=== PATIENT | female | born 1950 | race African-American/Black ===

== ENCOUNTER 2019-05-24 13:19 | Inpatient (IN) | payer OTHER ==
[2019-05-24 14:21] VITALS: BMI 27.3
--- NOTE | 2019-05-24 16:42 | HP ---
CIWA Score - Admission Criteria [facility] Guidelines: Admission for Medically Managed Detox: Requires at least one of the followin. CIWA greater than 12 2. Seizures within the past 24 hours 3. Delirium tremens within the past 24 hours 4. Hallucinations within the past 24 hours 5. Acute intervention needed for co occurring medical disorder 6. Acute intervention needed for co occurring psychiatric disorder 7. Severe withdrawal that cannot be handled at a lower level of care (continued vomiting, continued diarrhea, abnormal vital signs) requiring intravenous medication and/or fluids 8. Admitting History and Physical - Admission Chief Complaint: "i'm here for rehab" History of Present Illness: A 69year old female with h/o htn, HIV+ on haart, and heroin use disorder, on suboxone 8mg-2mg SLtab daily (prescription filled 05/24/2019). Pt presents here for rehab after been referred from [facility]. Pt states, she last used heroin 2bags on 05/23/19 and states that, in [facility] she was given suboxone 8mg-2mg film once. History Source: Patient Limitations to Obtaining History: No Limitations - Past Medical History Infectious Disease: Yes: HIV (H/o HIV+ 30years+.) Musculoskeletal: Yes: Chronic low back pain - Smoking History Smoking history: Current every day smoker Have you smoked in the past 12 months: Yes Aproximately how many cigarettes per day: 7 - Alcohol/Substance Use Hx Alcohol Use: No History of Substance Use: reports: Heroin Date of Last Use: 05/23/19 - Social History Usual Living Arrangement: Yes: Other (Lives with family) Do you think of yourself as: Straight/Heterosexual ADL: Independent History of Recent Travel: No Admission [facility] Allergies/Adverse Reactions: Allergies Allergy/AdvReac Type Severity Reaction Status Date / Time Penicillins Allergy Rash Verified 05/24/19 13:54 Exam Limitations: No Limitations - Ebola screening Have you traveled outside of the country in the last 21 days: No Have you had contact with anyone from an Ebola affected area: No Have you been sick,other than usual withdrawal symptoms: No Do you have a fever: No - Review of Systems Constitutional: No Symptoms Reported EENT: reports: No Symptoms Reported Respiratory: reports: No Symptoms reported Cardiac: reports: No Symptoms Reported GI: reports: No Symptoms Reported : reports: No Symptoms Reported Musculoskeletal: reports: Back Pain, Other (Uses cane) Integumentary: reports: No Symptoms Reported Neuro: reports: No Symptoms reported Endocrine: reports: No Symptoms Reported Hematology: reports: No Symptoms Reported Psychiatric: reports: Judgement Intact, Mood/Affect Appropiate, Orientated x3 Other Systems: Reviewed and Negative Patient History - PPD History Previous Implant?: Yes (pt states, she had one long time ago.) Documented Results: Negative w/o proof Implanted On Prior R Admission?: No PPD to be Administered?: Yes - Reproductive History Patient is a Female of Child Bearing Age (11 -55 yrs old): No - Smoking Cessation Smoking history: Current every day smoker Have you smoked in the past 12 months: Yes Aproximately how many cigarettes per day: 7 Hx Chewing Tobacco Use: No Initiated information on smoking cessation: Yes 'Breaking Loose' booklet given: 05/24/19 - Substance & Tx. History Hx Substance Use: Yes Substance Use Type: Heroin Hx Substance Use Treatment: No - Substances abused Heroin Substance route: Inhalation Frequency: Daily Amount used: 1-2 bags Age of first use: 19 Date of last use: 05/23/19 Admission Physical Exam S - Vital Signs Vital Signs: Vital Signs - 24 hr 05/24/19 13:46 Temperature 98.0 F Pulse Rate 88 Respiratory 20 Rate Blood Pressure 151/86 - Physical General Appearance: Yes: No Apparent Distress HEENTM: Yes: EOMI, Hearing grossly Normal, Normal Voice, DEEP, Pharynx Normal, Tm's normal Respiratory: Yes: Chest Non-Tender, Lungs Clear, Normal Breath Sounds, No Respiratory Distress, No Accessory Muscle Use Neck: Yes: No masses,lesions,Nodules, Supple, Trachea in good position Breast: Yes: Breast Exam Deferred Cardiology: Yes: Regular Rhythm, Regular Rate, S1, S2 Abdominal: Yes: Normal Bowel Sounds, Non Tender, Soft Genitourinary: Yes: Within Normal Limits Back: Yes: Normal Inspection Musculoskeletal: Yes: full range of Motion, Other (Ambulates with a cane) Extremities: Yes: Normal Capillary Refill, Normal Inspection, Non-Tender Neurological: Yes: Fully Oriented, Alert, Normal Mood/Affect, Normal Response Integumentary: Yes: Dry, Warm Lymphatic: Yes: Within Normal Limits Cleared for Admission [facility] - Detox or Rehab Claeared for Rehab Admission: Yes Breathalyzer - Breathalyzer Breathalyzer: 0 Urine Drug Screen - Test Device Lot number: [id number] Expiration date: 12/13/20 - Control Is test valid?: Yes - Results Drug screen NEGATIVE: No Urine drug screen results: MOP-Opiates, BUP-Suboxone Inpatient Rehab Admission - Rehab Decision to Admit Inpatient rehab admission?: Yes - Initial Determination Are CD services needed?: Yes Free of communicable disease: Yes Not in need of hospitalization: Yes - Rehab Admission Criteria Previous failed treatment: Yes Poor recovery environment: Yes Comorbidities: Yes Lacks judgement: Yes Patient is meeting Inpatient Rehab admission criteria:: Yes
[2019-05-24] MEDS ORDERED: LOPERAMIDE HCL 2 MG CAPSULE PO PRN (17:07)
[2019-05-24] MEDS ORDERED: MAG HYDROX/AL HYDROX/SIMETH 30 ML UNIT-DOSE CUP PO PRN (17:07)
[2019-05-24] MEDS ORDERED: guaiFENesin 200 MG/10 ML 10 ML UNIT-DOSE CUPS PO PRN (17:07)
[2019-05-24] MEDS ORDERED: MAGNESIUM HYDROX 2400MG/30ML ORAL SUSPENSION 30 ML CUP PO PRN (17:07)
[2019-05-24] MEDS ORDERED: hydrOXYzine PAMOATE 25 MG CAPSULE (FP) PO PRN (17:07)
[2019-05-24] MEDS ORDERED: IBUPROFEN 400 MG TABLET (FP) PO PRN (17:07)
[2019-05-24] MEDS ORDERED: P-EPHED 60MG/TRIPROLIDI 2.5MG TABLET PO PRN (17:07)
[2019-05-24] MEDS ORDERED: MENTHOL/PHENOL 1 EACH UD MM PRN (17:07)
[2019-05-24] MEDS ORDERED: MAGNESIUM CITRATE 300 ML BOTTLE PO PRN (17:07)
[2019-05-24] MEDS ORDERED: TUBERCULIN PPD 5 TU/0.1ML VIAL ID ONE (19:09)
[2019-05-24] MEDS: THIAMINE HCL 100 MG TABLET (FP) PO SCH (21:28)
[2019-05-24] MEDS: RILPIVIRINE HCL 25 MG TABLET PO SCH (21:29)
[2019-05-24] MEDS: DOLUTEGRAVIR SODIUM 50 MG TABLET (NON-FORMULARY) PO SCH (21:30)
[2019-05-24] MEDS: ATORVASTATIN CA 20 MG TABLET (FP) PO SCH (21:31)
[2019-05-24] MEDS: GABAPENTIN 300 MG CAPSULE PO SCH (21:31)
[2019-05-24] MEDS: MELATONIN 5 MG TABLETS PO PRN (21:34)
[2019-05-24] MEDS ORDERED: PATIENT'S OWN MEDICATION (NON-FORMULARY) (Dolutegravir/Rilpivirine [Juluca 50-25 Mg Tablet PO SCH (22:00)
[2019-05-25] MEDS: ASPIRIN COATED 81 MG TABLET.EC PO SCH (09:42)
[2019-05-25] MEDS: HYDROCHLOROTHIAZIDE 25 MG TABLET (FP) PO SCH (09:42)
[2019-05-25] MEDS: BUPRENORPHINE/NALOXONE 8 MG/2 MG FILM PACKET SL SCH (09:43)
[2019-05-25] MEDS: PRENATAL VITAMINS W/ FOLIC ACID TABLET (FP) PO SCH (09:43)
[2019-05-25] MEDS: amLODIPine BESYLATE 5 MG TABLET (FP) PO SCH (09:43)
[2019-05-25] MEDS: GABAPENTIN 300 MG CAPSULE PO SCH ×2 (09:43→21:33)
--- NOTE | 2019-05-25 10:12 | PN ---
[facility] Progress Note Note: Patient is new to [facility] and admitted 05/24/2019 for rehab for Opiod dependence. Patient is on Suboxone MAT program at [facility] [place] with PCP Dr. Denise Burdick (confirmed with [facility]). Patient has PMH of HTN, HIV+ and peripheral neuropathy. She denies mental illness and SI/HI. Vital Signs Temperature 98.0 F 05/25/19 07:04 Pulse Rate 66 05/25/19 07:04 Respiratory Rate 18 05/25/19 07:04 Blood Pressure 135/74 05/25/19 07:04 O2 Sat by Pulse Oximetry (%) ROS: denies shakes, chills, sweating, chest pain, sob and headache. PE: alert and oriented x 3 skin warm and dry +perrla, eoms intact bl ext full rom, amb with cane no tremors A/P: Opiod dependence HTN HIV+ Peripheral neuropathies suboxone mat suboxone mat in progress continue medications and rehab services encourage oral fluids monitor clinically
--- NOTE | 2019-05-25 11:40 | EKG ---
Test Reason : Blood Pressure : / mmHG Vent. Rate : 062 BPM Atrial Rate : 062 BPM P-R Int : 176 ms QRS Dur : 084 ms QT Int : 442 ms P-R-T Axes : 065 016 -07 degrees QTc Int : 448 ms NORMAL SINUS RHYTHM POSSIBLE LEFT ATRIAL ENLARGEMENT NONSPECIFIC INTRAVENTRICULAR CONDUCTION DEFECT NO PREVIOUS ECGS AVAILABLE Confirmed by MARIANNA BARROSO MD ([id number]) on 05/25/2019 11:40:00 AM Referred By: Confirmed By:MARIANNA BARROSO MD
[2019-05-25 11:45] LABS: HEMOGLOBIN 13.4 GM/dL (10.7-15.3); MCH 28.2 pg (25.7-33.7); MEAN CELL VOLUME 88.1 fl (80-96); MEAN PLT VOLUME 9.8 fl (7.5-11.1); PLATELET COUNT 261 K/MM3 (134-434); RBC 4.76 M/mm3 (3.60-5.2); RDW 13.7 % (11.6-15.6); WHITE BLOOD COUNT 4.9 K/mm3 (4.0-10.0)
[2019-05-25 11:53] LABS: ALBUMIN 3.5 g/dl (3.4-5.0); BILIRUBIN,TOTAL 0.5 mg/dL (0.2-1); BLOOD UREA NITROGEN 16.1 mg/dL (7-18); CALCIUM 9.3 mg/dL (8.5-10.1); CREATININE 1.1 mg/dL (0.55-1.3); POTASSIUM 4.1 mmol/L (3.5-5.1); TOT PROT 7.5 g/dl (6.4-8.2)
[2019-05-25] MEDS: NICOTINE POLACRILEX 2 MG GUM BUC PRN (13:23)
[2019-05-25] MEDS ORDERED: COLLOIDAL OATMEAL 1 BAR EACH TP PRN (13:35)
[2019-05-25 15:51] LABS: URINE APPEARANCE CLEAR; URINE BILIRUBIN NEGATIVE (NEGATIVE); URINE COLOR YELLOW; URINE GLUCOSE (UA) NEGATIVE (NEGATIVE); URINE KETONE NEGATIVE (NEGATIVE); URINE LEUK ESTERASE NEGATIVE (NEGATIVE); URINE NITRITE NEGATIVE (NEGATIVE); URINE PROTEIN TRACE (NEGATIVE); URINE UROBILINOGEN 0.2 mg/dL (0.2-1.0)
[2019-05-25] MEDS: ATORVASTATIN CA 20 MG TABLET (FP) PO SCH (21:33)
[2019-05-25] MEDS: THIAMINE HCL 100 MG TABLET (FP) PO SCH (21:33)
[2019-05-25] MEDS: RILPIVIRINE HCL 25 MG TABLET PO SCH (21:34)
[2019-05-25] MEDS: MELATONIN 5 MG TABLETS PO PRN (21:34)
[2019-05-25] MEDS: DOLUTEGRAVIR SODIUM 50 MG TABLET (NON-FORMULARY) PO SCH (21:35)
[2019-05-26] MEDS: ASPIRIN COATED 81 MG TABLET.EC PO SCH (10:18)
[2019-05-26] MEDS: amLODIPine BESYLATE 5 MG TABLET (FP) PO SCH (10:18)
[2019-05-26] MEDS: HYDROCHLOROTHIAZIDE 25 MG TABLET (FP) PO SCH (10:18)
[2019-05-26] MEDS: PRENATAL VITAMINS W/ FOLIC ACID TABLET (FP) PO SCH (10:18)
[2019-05-26] MEDS: GABAPENTIN 300 MG CAPSULE PO SCH ×2 (10:18→21:13)
[2019-05-26] MEDS: BUPRENORPHINE/NALOXONE 8 MG/2 MG FILM PACKET SL SCH (10:19)
[2019-05-26] MEDS: ATORVASTATIN CA 20 MG TABLET (FP) PO SCH (21:13)
[2019-05-26] MEDS: DOLUTEGRAVIR SODIUM 50 MG TABLET (NON-FORMULARY) PO SCH (21:13)
[2019-05-26] MEDS: RILPIVIRINE HCL 25 MG TABLET PO SCH (21:13)
[2019-05-26] MEDS: MELATONIN 5 MG TABLETS PO PRN (21:13)
[2019-05-26] MEDS: THIAMINE HCL 100 MG TABLET (FP) PO SCH (21:13)
[2019-05-27] MEDS: ASPIRIN COATED 81 MG TABLET.EC PO SCH (09:02)
[2019-05-27] MEDS: BUPRENORPHINE/NALOXONE 8 MG/2 MG FILM PACKET SL SCH (09:03)
[2019-05-27] MEDS: HYDROCHLOROTHIAZIDE 25 MG TABLET (FP) PO SCH (09:03)
[2019-05-27] MEDS: GABAPENTIN 300 MG CAPSULE PO SCH ×2 (09:03→21:13)
[2019-05-27] MEDS: PRENATAL VITAMINS W/ FOLIC ACID TABLET (FP) PO SCH (09:03)
[2019-05-27] MEDS: amLODIPine BESYLATE 5 MG TABLET (FP) PO SCH (09:03)
[2019-05-27] MEDS ORDERED: PT OWN MED DRAWER 7, Y5N ONE ×2 (19:58→21:16)
[2019-05-27] MEDS: ATORVASTATIN CA 20 MG TABLET (FP) PO SCH (21:13)
[2019-05-27] MEDS: THIAMINE HCL 100 MG TABLET (FP) PO SCH (21:13)
[2019-05-27] MEDS: RILPIVIRINE HCL 25 MG TABLET PO SCH (21:14)
[2019-05-27] MEDS: DOLUTEGRAVIR SODIUM 50 MG TABLET (NON-FORMULARY) PO SCH (21:14)
[2019-05-27] MEDS: MELATONIN 5 MG TABLETS PO PRN (21:15)
[2019-05-28] MEDS: GABAPENTIN 300 MG CAPSULE PO SCH ×2 (09:52→21:07)
[2019-05-28] MEDS: PRENATAL VITAMINS W/ FOLIC ACID TABLET (FP) PO SCH (09:52)
[2019-05-28] MEDS: ASPIRIN COATED 81 MG TABLET.EC PO SCH (09:52)
[2019-05-28] MEDS: BUPRENORPHINE/NALOXONE 8 MG/2 MG FILM PACKET SL SCH (09:54)
[2019-05-28] MEDS: amLODIPine BESYLATE 5 MG TABLET (FP) PO SCH (09:55)
[2019-05-28] MEDS: HYDROCHLOROTHIAZIDE 25 MG TABLET (FP) PO SCH (09:55)
[2019-05-28] MEDS: THIAMINE HCL 100 MG TABLET (FP) PO SCH (21:06)
[2019-05-28] MEDS: ATORVASTATIN CA 20 MG TABLET (FP) PO SCH (21:07)
[2019-05-28] MEDS: DOLUTEGRAVIR SODIUM 50 MG TABLET (NON-FORMULARY) PO SCH (21:07)
[2019-05-28] MEDS: MECLIZINE HCL 12.5 MG TABLET PO PRN (21:08)
[2019-05-28] MEDS: RILPIVIRINE HCL 25 MG TABLET PO SCH (21:09)
[2019-05-29] MEDS: ASPIRIN COATED 81 MG TABLET.EC PO SCH (09:52)
[2019-05-29] MEDS: BUPRENORPHINE/NALOXONE 8 MG/2 MG FILM PACKET SL SCH (09:52)
[2019-05-29] MEDS: HYDROCHLOROTHIAZIDE 25 MG TABLET (FP) PO SCH (09:52)
[2019-05-29] MEDS: GABAPENTIN 300 MG CAPSULE PO SCH ×2 (09:52→21:40)
[2019-05-29] MEDS: PRENATAL VITAMINS W/ FOLIC ACID TABLET (FP) PO SCH (09:52)
[2019-05-29] MEDS: amLODIPine BESYLATE 5 MG TABLET (FP) PO SCH (09:52)
[2019-05-29] MEDS: MECLIZINE HCL 12.5 MG TABLET PO PRN (10:58)
[2019-05-29] MEDS ORDERED: PT OWN MED DRAWER 7, Y5N ONE (15:13)
[2019-05-29] MEDS: DOCUSATE SODIUM 100 MG CAPSULE (FP) PO SCH ×2 (15:15→21:40)
[2019-05-29] MEDS: THIAMINE HCL 100 MG TABLET (FP) PO SCH (21:39)
[2019-05-29] MEDS: MELATONIN 5 MG TABLETS PO PRN (21:39)
[2019-05-29] MEDS: RILPIVIRINE HCL 25 MG TABLET PO SCH (21:40)
[2019-05-29] MEDS: ATORVASTATIN CA 20 MG TABLET (FP) PO SCH (21:41)
[2019-05-29] MEDS: DOLUTEGRAVIR SODIUM 50 MG TABLET (NON-FORMULARY) PO SCH (21:41)
[2019-05-30] MEDS: DOCUSATE SODIUM 100 MG CAPSULE (FP) PO SCH ×2 (06:55→21:30)
[2019-05-30] MEDS: ASPIRIN COATED 81 MG TABLET.EC PO SCH (09:47)
[2019-05-30] MEDS: LIDOCAINE 5% TOPICAL PATCH TP SCH (09:47)
[2019-05-30] MEDS: PRENATAL VITAMINS W/ FOLIC ACID TABLET (FP) PO SCH (09:47)
[2019-05-30] MEDS: amLODIPine BESYLATE 5 MG TABLET (FP) PO SCH (09:47)
[2019-05-30] MEDS: GABAPENTIN 300 MG CAPSULE PO SCH ×2 (09:47→21:27)
[2019-05-30] MEDS: HYDROCHLOROTHIAZIDE 25 MG TABLET (FP) PO SCH (09:47)
[2019-05-30] MEDS: BUPRENORPHINE/NALOXONE 8 MG/2 MG FILM PACKET SL SCH (09:47)
[2019-05-30] MEDS: ACETAMINOPHEN 325 MG TABLET (FP) PO PRN (15:35)
[2019-05-30] MEDS: THIAMINE HCL 100 MG TABLET (FP) PO SCH (21:26)
[2019-05-30] MEDS: MELATONIN 5 MG TABLETS PO PRN (21:26)
[2019-05-30] MEDS: ATORVASTATIN CA 20 MG TABLET (FP) PO SCH (21:27)
[2019-05-30] MEDS: LIDOCAINE PATCH REMOVAL MC SCH (21:27)
[2019-05-30] MEDS: DOLUTEGRAVIR SODIUM 50 MG TABLET (NON-FORMULARY) PO SCH (21:27)
[2019-05-30] MEDS: RILPIVIRINE HCL 25 MG TABLET PO SCH (21:52)
[2019-05-31] MEDS: LIDOCAINE 5% TOPICAL PATCH TP SCH (09:48)
[2019-05-31] MEDS: PRENATAL VITAMINS W/ FOLIC ACID TABLET (FP) PO SCH (09:53)
[2019-05-31] MEDS: amLODIPine BESYLATE 5 MG TABLET (FP) PO SCH (09:53)
[2019-05-31] MEDS: HYDROCHLOROTHIAZIDE 25 MG TABLET (FP) PO SCH (09:53)
[2019-05-31] MEDS: GABAPENTIN 300 MG CAPSULE PO SCH ×2 (09:53→21:27)
[2019-05-31] MEDS: BUPRENORPHINE/NALOXONE 8 MG/2 MG FILM PACKET SL SCH (09:55)
[2019-05-31] MEDS: ASPIRIN COATED 81 MG TABLET.EC PO SCH (10:17)
[2019-05-31] MEDS: ACETAMINOPHEN 325 MG TABLET (FP) PO PRN (19:15)
[2019-05-31] MEDS ORDERED: PT OWN MED DRAWER 7, Y5N ONE ×3 (20:45→21:31)
[2019-05-31] MEDS: ATORVASTATIN CA 20 MG TABLET (FP) PO SCH (21:27)
[2019-05-31] MEDS: THIAMINE HCL 100 MG TABLET (FP) PO SCH (21:27)
[2019-05-31] MEDS: DOCUSATE SODIUM 100 MG CAPSULE (FP) PO SCH (21:27)
[2019-05-31] MEDS: MELATONIN 5 MG TABLETS PO PRN (21:28)
[2019-05-31] MEDS: RILPIVIRINE HCL 25 MG TABLET PO SCH (21:28)
[2019-05-31] MEDS: LIDOCAINE PATCH REMOVAL MC SCH (21:29)
[2019-05-31] MEDS: DOLUTEGRAVIR SODIUM 50 MG TABLET (NON-FORMULARY) PO SCH (21:31)
[2019-06-01] MEDS: PRENATAL VITAMINS W/ FOLIC ACID TABLET (FP) PO SCH (10:12)
[2019-06-01] MEDS: ASPIRIN COATED 81 MG TABLET.EC PO SCH (10:12)
[2019-06-01] MEDS: HYDROCHLOROTHIAZIDE 25 MG TABLET (FP) PO SCH (10:12)
[2019-06-01] MEDS: LIDOCAINE 5% TOPICAL PATCH TP SCH (10:12)
[2019-06-01] MEDS: GABAPENTIN 300 MG CAPSULE PO SCH ×2 (10:12→21:25)
[2019-06-01] MEDS: BUPRENORPHINE/NALOXONE 8 MG/2 MG FILM PACKET SL SCH (10:12)
[2019-06-01] MEDS: amLODIPine BESYLATE 5 MG TABLET (FP) PO SCH (10:12)
[2019-06-01] MEDS: NICOTINE POLACRILEX 2 MG GUM BUC PRN (19:01)
[2019-06-01] MEDS: DOCUSATE SODIUM 100 MG CAPSULE (FP) PO SCH (21:24)
[2019-06-01] MEDS: ATORVASTATIN CA 20 MG TABLET (FP) PO SCH (21:24)
[2019-06-01] MEDS: THIAMINE HCL 100 MG TABLET (FP) PO SCH (21:25)
[2019-06-01] MEDS: MELATONIN 5 MG TABLETS PO PRN (21:25)
[2019-06-01] MEDS: RILPIVIRINE HCL 25 MG TABLET PO SCH (21:28)
[2019-06-01] MEDS ORDERED: PT OWN MED DRAWER 7, Y5N ONE (21:28)
[2019-06-01] MEDS: LIDOCAINE PATCH REMOVAL MC SCH (21:59)
[2019-06-02] MEDS: LIDOCAINE 5% TOPICAL PATCH TP SCH (10:26)
[2019-06-02] MEDS: HYDROCHLOROTHIAZIDE 25 MG TABLET (FP) PO SCH (10:27)
[2019-06-02] MEDS: GABAPENTIN 300 MG CAPSULE PO SCH ×2 (10:27→21:13)
[2019-06-02] MEDS: BUPRENORPHINE/NALOXONE 8 MG/2 MG FILM PACKET SL SCH (10:27)
[2019-06-02] MEDS: ASPIRIN COATED 81 MG TABLET.EC PO SCH (10:27)
[2019-06-02] MEDS: PRENATAL VITAMINS W/ FOLIC ACID TABLET (FP) PO SCH (10:27)
[2019-06-02] MEDS: amLODIPine BESYLATE 5 MG TABLET (FP) PO SCH (10:27)
[2019-06-02] MEDS: THIAMINE HCL 100 MG TABLET (FP) PO SCH (21:13)
[2019-06-02] MEDS: DOLUTEGRAVIR SODIUM 50 MG TABLET (NON-FORMULARY) PO SCH (21:13)
[2019-06-02] MEDS: ATORVASTATIN CA 20 MG TABLET (FP) PO SCH (21:14)
[2019-06-02] MEDS: LIDOCAINE PATCH REMOVAL MC SCH (21:14)
[2019-06-02] MEDS: DOCUSATE SODIUM 100 MG CAPSULE (FP) PO SCH (21:15)
[2019-06-02] MEDS: RILPIVIRINE HCL 25 MG TABLET PO SCH (21:15)
[2019-06-02] MEDS: MELATONIN 5 MG TABLETS PO PRN (21:16)
[2019-06-03] MEDS: HYDROCHLOROTHIAZIDE 25 MG TABLET (FP) PO SCH (10:07)
[2019-06-03] MEDS: BUPRENORPHINE/NALOXONE 8 MG/2 MG FILM PACKET SL SCH (10:07)
[2019-06-03] MEDS: PRENATAL VITAMINS W/ FOLIC ACID TABLET (FP) PO SCH (10:07)
[2019-06-03] MEDS: ASPIRIN COATED 81 MG TABLET.EC PO SCH (10:07)
[2019-06-03] MEDS: LIDOCAINE 5% TOPICAL PATCH TP SCH (10:07)
[2019-06-03] MEDS: GABAPENTIN 300 MG CAPSULE PO SCH ×2 (10:08→21:51)
[2019-06-03] MEDS: amLODIPine BESYLATE 5 MG TABLET (FP) PO SCH (10:08)
[2019-06-03] MEDS: MELATONIN 5 MG TABLETS PO PRN (21:43)
[2019-06-03] MEDS: DOCUSATE SODIUM 100 MG CAPSULE (FP) PO SCH (21:43)
[2019-06-03] MEDS: THIAMINE HCL 100 MG TABLET (FP) PO SCH (21:43)
[2019-06-03] MEDS: ATORVASTATIN CA 20 MG TABLET (FP) PO SCH (21:44)
[2019-06-03] MEDS ORDERED: PT OWN MED DRAWER 7, Y5N ONE (21:47)
[2019-06-03] MEDS: DOLUTEGRAVIR SODIUM 50 MG TABLET (NON-FORMULARY) PO SCH (21:49)
[2019-06-03] MEDS: RILPIVIRINE HCL 25 MG TABLET PO SCH (21:49)
[2019-06-03] MEDS: LIDOCAINE PATCH REMOVAL MC SCH (21:51)
[2019-06-04] MEDS: amLODIPine BESYLATE 5 MG TABLET (FP) PO SCH (09:57)
[2019-06-04] MEDS: PRENATAL VITAMINS W/ FOLIC ACID TABLET (FP) PO SCH (09:57)
[2019-06-04] MEDS: ASPIRIN COATED 81 MG TABLET.EC PO SCH (09:57)
[2019-06-04] MEDS: HYDROCHLOROTHIAZIDE 25 MG TABLET (FP) PO SCH (09:57)
[2019-06-04] MEDS: LIDOCAINE 5% TOPICAL PATCH TP SCH (09:57)
[2019-06-04] MEDS: GABAPENTIN 300 MG CAPSULE PO SCH ×2 (09:57→21:17)
[2019-06-04] MEDS: BUPRENORPHINE/NALOXONE 8 MG/2 MG FILM PACKET SL SCH (09:59)
[2019-06-04] MEDS: THIAMINE HCL 100 MG TABLET (FP) PO SCH (21:17)
[2019-06-04] MEDS: ATORVASTATIN CA 20 MG TABLET (FP) PO SCH (21:17)
[2019-06-04] MEDS: MELATONIN 5 MG TABLETS PO PRN (21:18)
[2019-06-04] MEDS ORDERED: PT OWN MED DRAWER 7, Y5N ONE (21:19)
[2019-06-04] MEDS: LIDOCAINE PATCH REMOVAL MC SCH (21:20)
[2019-06-04] MEDS: DOCUSATE SODIUM 100 MG CAPSULE (FP) PO SCH (21:20)
[2019-06-04] MEDS: DOLUTEGRAVIR SODIUM 50 MG TABLET (NON-FORMULARY) PO SCH (21:21)
[2019-06-04] MEDS: RILPIVIRINE HCL 25 MG TABLET PO SCH (21:21)
[2019-06-05] MEDS: HYDROCHLOROTHIAZIDE 25 MG TABLET (FP) PO SCH (09:50)
[2019-06-05] MEDS: LIDOCAINE 5% TOPICAL PATCH TP SCH (09:50)
[2019-06-05] MEDS: ASPIRIN COATED 81 MG TABLET.EC PO SCH (09:50)
[2019-06-05] MEDS: GABAPENTIN 300 MG CAPSULE PO SCH ×2 (09:51→21:12)
[2019-06-05] MEDS: amLODIPine BESYLATE 5 MG TABLET (FP) PO SCH (09:51)
[2019-06-05] MEDS: PRENATAL VITAMINS W/ FOLIC ACID TABLET (FP) PO SCH (09:51)
[2019-06-05] MEDS: BUPRENORPHINE/NALOXONE 8 MG/2 MG FILM PACKET SL SCH (09:51)
[2019-06-05] MEDS: ACETAMINOPHEN 325 MG TABLET (FP) PO PRN (15:02)
[2019-06-05] MEDS: ATORVASTATIN CA 20 MG TABLET (FP) PO SCH (21:12)
[2019-06-05] MEDS: THIAMINE HCL 100 MG TABLET (FP) PO SCH (21:12)
[2019-06-05] MEDS: DOCUSATE SODIUM 100 MG CAPSULE (FP) PO SCH (21:12)
[2019-06-05] MEDS: MELATONIN 5 MG TABLETS PO PRN (21:12)
[2019-06-05] MEDS: RILPIVIRINE HCL 25 MG TABLET PO SCH (21:14)
[2019-06-05] MEDS: LIDOCAINE PATCH REMOVAL MC SCH (21:14)
[2019-06-05] MEDS: DOLUTEGRAVIR SODIUM 50 MG TABLET (NON-FORMULARY) PO SCH (21:16)
[2019-06-06] MEDS: LIDOCAINE 5% TOPICAL PATCH TP SCH (10:10)
[2019-06-06] MEDS: GABAPENTIN 300 MG CAPSULE PO SCH ×2 (10:10→21:35)
[2019-06-06] MEDS: ASPIRIN COATED 81 MG TABLET.EC PO SCH (10:10)
[2019-06-06] MEDS: HYDROCHLOROTHIAZIDE 25 MG TABLET (FP) PO SCH (10:10)
[2019-06-06] MEDS: BUPRENORPHINE/NALOXONE 8 MG/2 MG FILM PACKET SL SCH (10:10)
[2019-06-06] MEDS: PRENATAL VITAMINS W/ FOLIC ACID TABLET (FP) PO SCH (10:10)
[2019-06-06] MEDS: amLODIPine BESYLATE 5 MG TABLET (FP) PO SCH (10:11)
--- NOTE | 2019-06-06 10:20 | DS ---
[facility] Rehab Discharge Summary - [facility] Rehab Discharge Summary Admission Date: 05/24/19 Discharge Date: 06/06/19 - History Present History: Opioid dependence Pertinent Past History: A 69year old female with h/o htn, HIV+ on ART, and heroin use disorder, on suboxone 8mg-2mg SLtab daily (prescription filled 05/24/2019). Pt presents here for rehab after been referred from [facility]. Pt states, she last used heroin 2bags on 05/23/19 and states that, in [facility] she was given suboxone 8mg-2mg film once. - Discharge Physical Exam Vital Signs: Vital Signs Temperature 97.8 F 06/06/19 07:09 Pulse Rate 60 06/06/19 07:09 Respiratory Rate 18 06/06/19 07:09 Blood Pressure 134/73 06/06/19 07:09 O2 Sat by Pulse Oximetry (%) Pertinent Admission Physical Exam Findings: - Physical General Appearance: No Apparent Distress HEENTM: DEEP, Respiratory: Lungs Clear, Neck: Supple, Trachea in good position Cardiology: S1, S2 Abdominal: +Bowel Sounds, Non Tender, Soft Musculoskeletal: full range of Motion, Extremities: Yes: Normal Capillary Refill, Normal Inspection, Non-Tender Neurological: CN 2-12 intact, Fully Oriented Lymphatic: No palpable lymph nodes - Treatment Discharge Condition: Outpatient referral accepted (Patient will go to [facility] for aftercare. medically stable for discharge.) Hospital Course: patient attended groups, had 1:1 with her counselor. She had no significant medical problems that required intervention during her stay in rehab. - Medication Discharge Medications: Ambulatory Orders Albuterol Sulfate [Proair Hfa] 8.5 gm IH PRN PRN 05/24/19 Amlodipine Besylate [Norvasc -] 5 mg PO DAILY 05/24/19 Aspirin Coated [Ecotrin -] 81 mg PO DAILY 05/24/19 Atorvastatin Ca [Lipitor] 20 mg PO HS 05/24/19 Dolutegravir/Rilpivirine [Juluca 50-25 mg Tablet] 1 each PO HS 05/24/19 Gabapentin 300 mg PO BID 05/24/19 Hydrochlorothiazide [Hctz -] 25 mg PO DAILY 05/24/19 Lamivudine [Epivir -] 300 mg PO HS 05/24/19 Meclizine HCl 12.5 mg PO BID 05/24/19 Multivitamins [Tab-A-Vit -] 1 tab PO DAILY 05/24/19 Gabapentin [Neurontin -] 300 mg PO BID #30 capsule 06/06/19 - Medication-Assisted Treatment (MAT) Medication-Assisted Treatment (MAT): Yes Medication Prescribed: Buprenorphine (Patient receives MAT at [facility].) - Discharge Instructions Diet, activity, other medical instructions: Diet: as tolerated Activity: as tolerated Other medical instructions: Follow up with aftercare and MAT. - Diagnosis (1) Heroin use disorder, mild Current Visit: Yes Status: Chronic - Follow-up Referral Minutes to complete discharge: 20 - AMA Did Patient Leave Against Medical Advice: No
[2019-06-06] MEDS: MELATONIN 5 MG TABLETS PO PRN (21:34)
[2019-06-06] MEDS: THIAMINE HCL 100 MG TABLET (FP) PO SCH (21:34)
[2019-06-06] MEDS: RILPIVIRINE HCL 25 MG TABLET PO SCH (21:35)
[2019-06-06] MEDS: ATORVASTATIN CA 20 MG TABLET (FP) PO SCH (21:35)
[2019-06-06] MEDS: DOLUTEGRAVIR SODIUM 50 MG TABLET (NON-FORMULARY) PO SCH (21:36)
[2019-06-06] MEDS: LIDOCAINE PATCH REMOVAL MC SCH (21:36)
[2019-06-06] MEDS: DOCUSATE SODIUM 100 MG CAPSULE (FP) PO SCH (21:37)
[2019-06-07 07:00] VITALS: TEMP 97.7
[2019-06-07] MEDS: ASPIRIN COATED 81 MG TABLET.EC PO SCH (09:04)
[2019-06-07] MEDS: HYDROCHLOROTHIAZIDE 25 MG TABLET (FP) PO SCH (09:05)
[2019-06-07] MEDS: BUPRENORPHINE/NALOXONE 8 MG/2 MG FILM PACKET SL SCH (09:05)
[2019-06-07] MEDS: LIDOCAINE 5% TOPICAL PATCH TP SCH (09:05)
[2019-06-07] MEDS: PRENATAL VITAMINS W/ FOLIC ACID TABLET (FP) PO SCH (09:05)
[2019-06-07] MEDS: amLODIPine BESYLATE 5 MG TABLET (FP) PO SCH (09:05)
[2019-06-07] MEDS: GABAPENTIN 300 MG CAPSULE PO SCH (09:05)
[2019-06-07 10:28] VITALS: BP 126/79; PULSE 94
== END 2019-06-07 09:20 | disposition home or self-care (01) | DRG 895 ==
LOC: YASAS 13:19 → Y3E 17:15
PROVIDERS: ADMIT Neuromusculoskeletal Medicine & OMM; ATTEND Neuromusculoskeletal Medicine & OMM
PROC: HZ42ZZZ Group Counseling for Substance Abuse Treatment, Cognitive-Behavioral (ICD-10-PCS; principal; 2019-05-24)
DX: F11.20 Opioid dependence, uncomplicated (principal); F17.210 Nicotine dependence, cigarettes, uncomplicated; Z21 Asymptomatic human immunodeficiency virus [HIV] infection status; I10 Essential (primary) hypertension; G62.9 Polyneuropathy, unspecified; M54.5 Low back pain; G89.29 Other chronic pain; Z51.81 Encounter for therapeutic drug level monitoring
CPT/HCPCS: 36415; 80053; 81003; 85027; 86593; 93005; 93010